=== PATIENT | female | born 1975 | race Caucasian/White ===

== ENCOUNTER → 2021-03-14 | Outpatient (CLI) | payer OTHER ==
[2014-10-08 13:52] VITALS: BP 142/78
[~2021-03-14] MED LIST: ASCO100019 PO; CHLO12TA PO; CHOL100017 PO; CYAN50004 PO; DESO1TAB PO; FLUT16SP NS; LORA10TA68 PO; MONT10TA49 PO; OMEG300C PO; OXYC1TAB15 PO; RUTI1TAB PO
--- NOTE | 2021-03-14 10:32 | KCIC ---
Bilateral digital screening mammograms with 3-D tomosynthesis: Reason for examination: Routine screening. Comparison is made to previous studies dated 05/01/2016 and 08/13/2009. Bilateral mammograms in CC and oblique projections were obtained with 2-D imaging and 3-D tomosynthes is imaging on a Siemens Inspiration unit and reviewed on the workstation. Interpretation was made wit h the benefit of CAD. The skin and nipples show no abnormalities. No abnormal axillary lymph nodes are seen. The breast par enchyma is extremely dense. (Breast density: Category D.) There appears to be a cluster of microcalci fications superiorly in the right breast on oblique view approximately 5.5 cm from the nipple. Furthe r evaluation however with coned compression magnification views in CC and true lateral projections is recommended. There are no other dominant masses, suspicious calcifications or architectural distorti on. Impression: Clustered microcalcifications seen superiorly in the right breast on oblique view 5.5 cm from the nip ple. Recommend further evaluation with coned compression magnification views in CC and true lateral p rojections. Your patient's mammogram demonstrates that she has dense breast tissue (breast density category C or D), which could hide abnormalities, and if she has other risk factors for breast cancer that have bee n identified, she might benefit from supplemental screening tests that may be suggested by you as her ordering physician. Dense breast tissue, in and of itself, is a relatively common condition. Therefo re, this information is not provided to cause undue concern, but rather to raise your awareness and t o promote discussion with your patient regarding the presence of other risk factors, in addition to d ense breast tissue. Your patient's mammography results will be sent to her. BI-RAD Category 0: Incomplete. Needs additional imaging evaluation. "Our facility is accredited by the [employer] Mammography [employer]." This patient's information has been entered into a reminder system for the patient to be notified wit h the results of her examination and a target date for the next mammogram. Electronically signed by: Khushboo Sandoval MD (03/14/2021 10:29 AM) [email or web address]
== END ==
LOC: KCIC MAMMO 07:58
PROVIDERS: ATTEND Family Medicine
DX: Z12.31 Encounter for screening mammogram for malignant neoplasm of breast (principal)
CPT/HCPCS: 77063; 77067

== ENCOUNTER → 2021-03-23 | Outpatient (CLI) | payer OTHER ==
[2014-10-08 13:52] VITALS: BP 142/78
--- NOTE | 2021-03-23 19:43 | KCIC ---
DIAGNOSTIC RIGHT DIGITAL MAMMOGRAM INDICATION: Abnormal screening mammogram with calcifications in the upper right breast. FINDINGS: Breast density: Category D. The fibroglandular tissue is extremely dense which lowers sensitivity of mammography. Spot magnification compression views show an 8 mm group of calcifications in the 11:00 position of e right breast about 5 cm from the nipple. These show meniscus signs on the medial lateral view and a re consistent with milk of calcium within microcysts which is a benign finding. IMPRESSION: There benign calcifications in the 11:00 position the right breast from milk of calcium w ithin microcysts. ASSESSMENT: BI-RADS 2. Benign findings. Recommendations: Routine screening mammograms The patient was given results at the time of examination. Patient information will be entered into [facility] mammography reminder system with a target recall date for her next mammogram. Electronically signed by: Andressa Llanes MD (03/23/2021 7:41 PM) [email or web address]
== END ==
LOC: KCIC MAMMO 12:58
PROVIDERS: ATTEND Family Medicine
DX: R92.8 Other abnormal and inconclusive findings on diagnostic imaging of breast (principal)
CPT/HCPCS: 77065